=== PATIENT | female | born 1980 | race Caucasian/White ===

== ENCOUNTER → 2017-01-02 | Outpatient (CLI) | payer SELFPAY | LOC: M SMT 14:27 | PROVIDERS: ATTEND Allergy & Immunology Allergy | DX: Z11.3 Encounter for screening for infections with a predominantly sexual mode of transmission (principal); W46.1XXA Contact with contaminated hypodermic needle, initial encounter ==

== ENCOUNTER → 2017-08-24 | Outpatient (CLI) | payer OTHER | LOC: M WUC 17:42 | DX: M79.672 Pain in left foot (principal) ==

== ENCOUNTER → 2021-03-15 | Outpatient (REF) | payer OTHER, SELFPAY | LOC: M LAB REF 17:05 | PROVIDERS: ATTEND Family Medicine | DX: J06.9 Acute upper respiratory infection, unspecified (principal) ==